=== PATIENT | female | born 1990 | race Caucasian/White ===

== ENCOUNTER 2021-03-29 14:18 | Outpatient (CLI) | payer BC ==
[~2021-03-29] VITALS: Ht 165.1 cm; Wt 77.7 kg
--- NOTE | 2021-03-29 14:30 | NUR ---
Pt arrived on unit ambulatory and escorted by with complaints of cramping on and off over the last couple days and spotting while going to the bathroom. Pt denies any leaking of fluid and reports normal movement. EFM and toco monitors were started. Vital signs WNL. SVE by this RN 0/20/high with no bloody show noted on exam. Dr. Loredo notified of pt's arrival. See physician notification for details.
[2021-03-29] MEDS ORDERED: PRENATAL (14:48)
[2021-03-29 15:30] VITALS: BP 120/69; PULSE 80; TEMP 98
[2021-03-29 15:38] LABS: COLLECTION METHOD CLEAN CATCH
[2021-03-29 16:07] LABS: PH 7 (5-8); SQUAMOUS EPITHELIAL 0-2 /hpf; URINE APPEARANCE Clear; URINE BACTERIA None Seen /hpf; URINE BILIRUBIN Negative (NEGATIVE); URINE BLOOD Negative (NEGATIVE); URINE COLOR Straw; URINE GLUCOSE Negative (NEGATIVE); URINE KETONE Negative (NEGATIVE); URINE LEUKOCYTE ESTERASE Negative (NEGATIVE); URINE NITRATE Negative (NEGATIVE); URINE PROTEIN(semi-quant) Negative (NEGATIVE); URINE RBC 0-2 /hpf; URINE UROBILINOGEN Negative (NEGATIVE); URINE WBC 0-2 /hpf
--- NOTE | 2021-03-29 17:30 | NUR ---
Dr. Loredo on the unit. FHR tracing and lab results reviewed. Orders for discharge home received. Discharge instructions reviewed with pt and at the bedside.
[2021-03-29 17:33] VITALS: BP 108/60; PULSE 71
== END 2021-03-29 17:35 | disposition home or self-care (01) ==
LOC: LDRO 14:18 → LDR 14:50 → LDRO 17:35
PROVIDERS: Student in an Organized Health Care Education/Training Program
DX: O26.893 Other specified pregnancy related conditions, third trimester (principal); R25.2 Cramp and spasm; Z3A.31 31 weeks gestation of pregnancy
CPT/HCPCS: OP

== ENCOUNTER 2021-05-27 06:45 | Inpatient (IN) | payer BC ==
[~2021-05-27] VITALS: Ht 165.1 cm; Wt 80.5 kg
[2021-05-27] VITALS (7 sets, daily range): BP systolic 101–115; BP diastolic 56–71; PULSE 64–89; TEMP 97.9
[~2021-05-27 06:45] MED LIST: PRENATAL
[2021-05-27 21:00] LABS: BASO % 0.2 % (0.0-2.0); EOS # 0.1 K/mm3 (0.0-0.7); EOS % 0.7 % (0-4.0); GRAN # 6.4 K/mm3 (1.4-6.5); GRAN % 62.2 % (42.2-75.2); HEMOGLOBIN 11.4 g/dl (12.5-16.0); LYMPH # 3.1 K/mm3 (1.2-3.4); LYMPH % 29.6 % (20.0-51.0); MEAN CELL VOLUME 95 fl (80.0-100.0); MEAN CORPUSCULAR HEMOGLOBIN 32 pg (27.0-31.0); MEAN CORPUSCULAR HGB CONC 34 g/dl (33.0-37.0); MEAN PLATELET VOLUME 10.9 fl (7.4-10.4); MONO # 0.7 K/mm3 (0.1-0.6); MONO % 7.1 % (1.7-9.3); PLATELET COUNT 264 K/mm3 (130-400); RED BLOOD COUNT 3.58 M/mm3 (4.10-5.30); REDCELL DISTRIBUTION WIDTH-CV 13.9 % (11.5-14.5)
[2021-05-27 21:02] LABS: HEMATOCRIT 33.9 % (37.0-47.0)
--- NOTE | 2021-05-27 21:07 | NUR ---
1918 - 31 YO AT 40.2 WEEKS GESTATION TO LDR 5 FOR INDUCTION OF LABOR FOR POST DATES. PT REPORTS FEELING A FEW IRREG CTXS, DENIES LEAKING FLUID OR VAGINAL BLEEDING AND REPORTS GOOD ACTIVITY. INDUCTION PROCESS EXPLAINED TO PT AND , ALL QUESTIONS ANSWERED
--- NOTE | 2021-05-27 21:15 | NUR ---
CONSENTS SIGNED AND ADMIT PROCESS COMPLETED
--- NOTE | 2021-05-27 21:23 | NUR ---
2014 20G STARTED TO LEFT FOREARM, SALINE LOCKED
--- NOTE | 2021-05-27 21:58 | NUR ---
2040 - CYTOTEC 25MCG PLACED TO POSTERIOR FORNIX OF VAGINA
[2021-05-28] VITALS (59 sets, daily range): BP systolic 98–170; BP diastolic 53–89; PULSE 57–135; TEMP 97.9–98.4
--- NOTE | 2021-05-28 06:12 | NUR ---
0550 - SALINE LOCK FLUSHED EASILY, LR STARTED TO GRAVITY
--- NOTE | 2021-05-28 11:18 | NUR ---
[id number] HEART TONES IN 60-90S. PATIENT LL, RL, LUZ, Clara CRINGAN IN ROOM, CSTUBBS, SERVICE WRITER ADVISOR AT BEDSIDE ADMINISTERING EPHEDERINE
--- NOTE | 2021-05-28 16:45 | NUR ---
VAC DELIVERY BR DR DAUGHERTY. IN CARE OF RADHA AND GABRIEL BOYD. PLACENTA DELIVERED AT 1650. OXYTOCIN AT 333 MLS/ HR. FUNDAL MASSAGE PROVIDED. 3RD DEGREE REPARIED BY DR DAUGHERTY. ICE PACK TO PERINEUM
--- NOTE | 2021-05-28 20:06 | NUR ---
Pt's fundus deviated to left
--- NOTE | 2021-05-28 20:34 | NUR ---
PT UP TO BATHROOM, PT REPORTS FEELING LIGHT HEADED AND DIZZY BUT HAS STEADY GAIT. PT UNABLE TO VOID AT THIS TIME AND DENIES THE URGE TO VOID.
--- NOTE | 2021-05-28 23:00 | NUR ---
Report recieved. Resting in bed at this time. at bedside.
--- NOTE | 2021-05-28 23:13 | NUR ---
RN GAVE REPORT TO GABRIEL RAMIREZ
[2021-05-29 05:00] VITALS: BP 103/60; PULSE 81; TEMP 97.5
[2021-05-29 08:25] VITALS: BP 104/53; PULSE 93; TEMP 97.7
--- NOTE | 2021-05-29 09:30 | NUR ---
Initial visit; Patient's thanked Circuitry Negative Inspector for offering congratulations and God's blessings to him and Ashley (who was indisposed) for the of their son. Circuitry Negative Inspector thanked family for choosing our hospital.
[2021-05-29 09:56] LABS: MEAN CELL VOLUME 95 fl (80.0-100.0); MEAN CORPUSCULAR HGB CONC 34 g/dl (33.0-37.0); MEAN PLATELET VOLUME 10.7 fl (7.4-10.4); PLATELET COUNT 215 K/mm3 (130-400); RED BLOOD COUNT 2.85 M/mm3 (4.10-5.30); REDCELL DISTRIBUTION WIDTH-CV 13.9 % (11.5-14.5)
[2021-05-29 10:00] LABS: HEMATOCRIT 27.2 % (37.0-47.0); MEAN CORPUSCULAR HEMOGLOBIN 32 pg (27.0-31.0)
[2021-05-29 10:02] LABS: HEMOGLOBIN 9.2 g/dl (12.5-16.0)
[2021-05-29 13:00] VITALS: BP 108/70; PULSE 103; TEMP 98
[2021-05-29 17:10] VITALS: BP 108/60; PULSE 104; TEMP 98.2
[2021-05-29 21:55] VITALS: BP 94/54; PULSE 101; TEMP 98.3
[2021-05-30 08:00] VITALS: BP 116/57; PULSE 104; TEMP 98.3
--- NOTE | 2021-05-30 08:50 | NUR ---
DR MOREJON NOTIFIED THIS RN THAT MOTHER WAS VERY TEARFUL ABOUT . THIS RN WENT TO BEDSIDE TO SPEAK WITH MOM. MOM VERBALIZED HER CONCERNS THAT MARIA ALEJANDRA IS NOT EATING OR SHOWING INTEREST. THIS RN REASSURED MOM THAT SHE WAS DOING EVERYTHING RIGHT AND PROVIDED SUPPORT. MOM WILLING TO CALL THIS RN WHEN MARIA ALEJANDRA RETURNS FROM CIRCUMCISION TO ATTEMPT TO BREASTFEED AGAIN. MOM AGREEABLE WITH PLAN OF CARE. MOM WILL ATTEMPT TO BREASTFEED ONCE AN HOUR UNTIL BABE NURSES SUCCESSFULLY. MOM VERBALIZED UNDERSTANDING TO ONLY ATTEMPT TO BREASTFEED FOR 10-15MIN.
[2021-05-30] MEDS ORDERED: FERROUS SU325 MG/TAB PO (10:37)
[2021-05-30] MEDS ORDERED: IBU800 M1 PO (11:02)
--- NOTE | 2021-05-30 15:46 | NUR ---
1400DISCHARGE INSTRUCTIONS REVIEWED WITH PATIENT. PATIENT VERBALIZED UNDERSTANDING. WILL NOTIFY THIS RN WHEN READY TO LEAVE. 1430ALL PERSONAL BELONGINGS GATHERED FROM PATIENT ROOM. PATIENT LEFT AMBULATORY AND IN NO APPARENT DISTRESS. PATIENT ACCOMPANIED BY SPOUSE AND THIS RN.
== END 2021-05-30 14:30 | disposition home or self-care (01) | DRG 768 ==
LOC: OB 06:45 → LDR 18:52 → OB 18:52
PROVIDERS: ADMIT Student in an Organized Health Care Education/Training Program
PROC: 10D07Z6 Extraction of Products of Conception, Vacuum, Via Natural or Artificial Opening (ICD-10-PCS; principal; 2021-05-28)
PROC: 0DQR0ZZ Repair Anal Sphincter, Open Approach (ICD-10-PCS; 2021-05-28)
PROC: 10907ZC Drainage of Amniotic Fluid, Therapeutic from Products of Conception, Via Natural or Artificial Opening (ICD-10-PCS; 2021-05-28)
PROC: 3E033VJ Introduction of Other Hormone into Peripheral Vein, Percutaneous Approach (ICD-10-PCS; 2021-05-28)
PROC: 3E0P7VZ Introduction of Hormone into Female Reproductive, Via Natural or Artificial Opening (ICD-10-PCS; 2021-05-28)
DX: O48.0 Post-term pregnancy (principal); Z37.0 Single live birth; O70.20 Third degree perineal laceration during delivery, unspecified; O76 Abnormality in fetal heart rate and rhythm complicating labor and delivery; O26.899 Other specified pregnancy related conditions, unspecified trimester; O77.0 Labor and delivery complicated by meconium in amniotic fluid; O26.53 Maternal hypotension syndrome, third trimester; Z3A.40 40 weeks gestation of pregnancy
CPT/HCPCS: J2210; J2590; J2791; J7120

== ENCOUNTER 2024-03-25 08:39 | Inpatient (IN) | payer BC ==
[~2024-03-25] VITALS: Ht 167.6 cm; Wt 91.8 kg
[2024-03-25] VITALS (36 sets, daily range): BP systolic 96–144; BP diastolic 52–97; PULSE 81–138; TEMP 97.4–98.3
[~2024-03-25 08:39] MED LIST changes: +FERROUS SU325 MG/TAB PO; +IBU800 M1 PO
--- NOTE | 2024-03-25 13:50 | NUR ---
ON UNIT. PROVIDER NOTIFIED THAT PATIENT IS HERE. PROVIDER NOTIFIED THAT IV IS IN AND THAT FLUIDS AND PITOCIN ARE BOTH STARTED. PROVIDER NOTIFIED THAT SVE @ 2164 WAS 3-. PROVIDER WILL SEE PATIENT AFTER TWIN DELIVERY.
[2024-03-25] MEDS ORDERED: LR 1,000 ML IV SCH (14:00)
[2024-03-25] MEDS ORDERED: LR & Oxytocin 500 ML IV SCH (14:00)
[2024-03-25] MEDS ORDERED: diphenhydrAMINE 25 MG CAP PO PRN (15:30)
[2024-03-25] MEDS ORDERED: Naloxone 0.4 MG/ML VIAL IV PRN ×2 (15:30→22:45)
[2024-03-25] MEDS ORDERED: ePHEDrine 50 MG/10 ML VIAL IV PRN (15:30)
[2024-03-25] MEDS ORDERED: diphenhydrAMINE 50 MG/ML 1 ML VIAL IV PRN (15:30)
[2024-03-25] MEDS ORDERED: Ondansetron 4 MG/2 ML VIAL IV PRN (15:30)
--- NOTE | 2024-03-25 16:39 | NUR ---
AT BEDSIDE. FHR TRACING REVIEWED. PLAN OF CARE UPDATED. SVE @ 2508 /-2. AROM @ 3966, CLEAR FLUID.
[2024-03-25 16:42] LABS: BASO % 0.2 % (0.0-2.0); EOS # 0.1 K/mm3 (0.0-0.7); EOS % 0.7 % (0.0-4.0); GRAN # 4.9 K/mm3 (1.4-6.5); GRAN % 59.5 % (42.2-75.2); HEMATOCRIT 33.4 % (37.0-47.0); HEMOGLOBIN 10.8 g/dl (12.5-16.0); LYMPH # 2.5 K/mm3 (1.2-3.4); LYMPH % 30.8 % (20.0-51.0); MEAN CELL VOLUME 92 fl (80.0-100.0); MEAN CORPUSCULAR HEMOGLOBIN 30 pg (27-31); MEAN CORPUSCULAR HGB CONC 32 g/dl (33.0-37.0); MEAN PLATELET VOLUME 12.2 fl (7.4-10.4); MONO # 0.7 K/mm3 (0.1-0.6); MONO % 8.6 % (1.7-9.3); PLATELET COUNT 244 K/mm3 (130-400); RED BLOOD COUNT 3.62 M/mm3 (4.10-5.30); REDCELL DISTRIBUTION WIDTH-CV 15.3 % (11.5-14.5)
[2024-03-25] MEDS ORDERED: ROPivacaine PF 0.2% 200 ML IV ONE (18:16)
--- NOTE | 2024-03-25 18:47 | NUR ---
Armas catheter placed followed by repeat SVE to assure armas bulb did not slip beneath head.
--- NOTE | 2024-03-25 18:55 | NUR ---
Repositioned right lateral. Adjusting US.
--- NOTE | 2024-03-25 18:57 | NUR ---
Left leg up in stirrup while in right lateral.
--- NOTE | 2024-03-25 19:15 | NUR ---
Repositioned left lateral with right leg up in stirrup, as noted recurrent late decels.
--- NOTE | 2024-03-25 19:30 | NUR ---
Note hypotensive, will administer Ephedrine IVP. This explained to patient and spouse. Verbalize understanding.
--- NOTE | 2024-03-25 20:03 | NUR ---
Repositioned to katiuska.
--- NOTE | 2024-03-25 20:55 | NUR ---
Repeat SVE after repositioning to left lateral @ 2050, and audible decel into 70s, repositioned to right lateral @ 2053. Repeat SVE @ 2054. Anticipate rapid cervical change from this point forward. Notified pyrotechnist to set up table. in-house. Updated to most recent SVE.
[2024-03-25] MEDS ORDERED: traZODone 50 MG TAB PO PRN (21:00)
--- NOTE | 2024-03-25 21:45 | NUR ---
Following repeat SVE, repositioned to left lateral. Fetus intolerable of this position, audible deceleration. Rate of pitocin cut from 18mU/min to 9mU/min, LR bolus begun @ 2147.
--- NOTE | 2024-03-25 21:49 | NUR ---
Repositioned to right lateral. Prolonged deceleration has been approximately 5 minutes in length at this point.
--- NOTE | 2024-03-25 21:51 | NUR ---
in-house, called to room. To room within same minute as phone call requesting her to come evaluate. She performs repeat SVE @ 2152, 9/100/0. Repositioned back to right lateral following repeat SVE.
--- NOTE | 2024-03-25 21:57 | NUR ---
Repositioned to knee chest with assist of this check writer, , and Poornima Hanson RN, charge nurse.
--- NOTE | 2024-03-25 22:00 | NUR ---
Pit off per verbal order.
--- NOTE | 2024-03-25 22:01 | NUR ---
Repeat SVE by C/+1, positive scalp stim.
--- NOTE | 2024-03-25 22:03 | NUR ---
Repositioned to supine with feet in stirrups at this time. remains in room for delivery. Nursery nurse notified, as well as charge nurse, to come for delivery and 2nd assist.
--- NOTE | 2024-03-25 22:08 | NUR ---
After pushing through only one contraction, spontaneous vaginal delivery of viable male by . head delivered with shoulders rapidly delivering behind.
--- NOTE | 2024-03-25 22:14 | NUR ---
Spontaneous vaginal delivery of placenta by . Pit bolus begun immediately after @ 333 mU/min. then works to repair 2nd degree perineal laceration with 2-[address]1. QBL 275 mL.
[2024-03-25] MEDS ORDERED: Loratadine 10 MG TAB PO PRN (22:45)
[2024-03-25] MEDS ORDERED: Measles/Mumps/Rubella Virus Vaccine Live w Diluent 0.5 ML VIAL SQ SCH (22:45)
[2024-03-25] MEDS ORDERED: Ibuprofen 800 MG TAB PO SCH (22:45)
[2024-03-25] MEDS ORDERED: Magnes Hydrox (MOM) 80 MG/ML 30 ML CUP PO PRN (22:45)
[2024-03-25] MEDS ORDERED: Mag/Al Hydrox/Simeth Susp 30 ML CUP PO PRN (22:45)
[2024-03-25] MEDS ORDERED: Witch Hazel 50% Pads Bulk TUB TP PRN (22:45)
[2024-03-25] MEDS ORDERED: Acetaminophen 500 MG TAB PO SCH (22:45)
[2024-03-25] MEDS ORDERED: Phenylephrine/Mineral Oil/Petrolatum 57 GM TUBE RC PRN (22:45)
[2024-03-26 00:15] VITALS: BP 113/53; PULSE 116
--- NOTE | 2024-03-26 00:30 | NUR ---
Assisted to bathroom using Meaghan Steady at this time. Patient reports left leg feeling heavy still. Able to spontaneously void. Babita care provided. Mesh underwear, babita pad, ice pack, Tucks applied. Clean gown provided. Transferred to PP room 207 per Meaghan Montgomery. Instructed to let this chief writer know next time she needs to void to assist up to bathroom.
[2024-03-26 00:54] VITALS: BP 113/55; PULSE 78
[2024-03-26 03:00] VITALS: BP 112/62; PULSE 90; TEMP 98
--- NOTE | 2024-03-26 03:00 | NUR ---
Standby assist to bathroom. Steady gait noted. Independent with babita care.
[2024-03-26] MEDS ORDERED: Sennosides/Docusate 8.6-50 MG TAB PO SCH (08:00)
[2024-03-26 08:42] VITALS: BP 116/81; PULSE 79; TEMP 97.4
[2024-03-26] MEDS ORDERED: Rho(D) Imm Globulin 1,500 UNITS (300 MCG)/2 ML SYRINGE IV\\IM SCH (14:00)
[2024-03-26 16:45] VITALS: BP 120/65; PULSE 72; TEMP 97.6
[2024-03-26 20:35] VITALS: BP 111/61; PULSE 87; TEMP 98
[2024-03-27 08:00] VITALS: BP 101/61; PULSE 80; TEMP 98.1
--- NOTE | 2024-03-27 09:47 | NUR ---
Initial visit; Parents thanked Screw Eye Assembler for offering congratulations and God's blessings for the of their son. Screw Eye Assembler thanked family for choosing [facility] and was pleased to hear their experience here has been a good one.
[2024-03-27] MEDS ORDERED: NEWMANS TOP (09:55)
== END 2024-03-27 11:40 | disposition home or self-care (01) | DRG 560 ==
LOC: OB 08:39 → LDR 13:02 → OB 03-26 00:35
PROVIDERS: ADMIT Student in an Organized Health Care Education/Training Program
PROC: 10E0XZZ Delivery of Products of Conception, External Approach (ICD-10-PCS; principal; 2024-03-25)
PROC: 0KQM0ZZ Repair Perineum Muscle, Open Approach (ICD-10-PCS; 2024-03-25)
PROC: 10907ZC Drainage of Amniotic Fluid, Therapeutic from Products of Conception, Via Natural or Artificial Opening (ICD-10-PCS; 2024-03-25)
PROC: 3E033VJ Introduction of Other Hormone into Peripheral Vein, Percutaneous Approach (ICD-10-PCS; 2024-03-25)
PROC: 3E0234Z Introduction of Serum, Toxoid and Vaccine into Muscle, Percutaneous Approach (ICD-10-PCS; 2024-03-26)
DX: O43.893 Other placental disorders, third trimester (principal); Z37.0 Single live birth; O70.1 Second degree perineal laceration during delivery; O26.893 Other specified pregnancy related conditions, third trimester; Z3A.40 40 weeks gestation of pregnancy
CPT/HCPCS: J2590; J2791; J2795; J7120